=== PATIENT | male | born 1995 | race Caucasian/White ===

== ENCOUNTER 2025-04-30 08:21 | Emergency (ER) | payer BC, SELFPAY ==
[2025-04-30] VITALS (7 sets, daily range): BP systolic 120–147; BP diastolic 83–96; PULSE 81–90; RESP 16–22; TEMP 36.7; O2SAT 92–100; BMI 27.1
--- NOTE | 2025-04-30 08:37 | ECG_ITS ---
APPROVED REPORT Exam: Resting ECG HR:77 bpm ECG Measurements Heart Rate 77 AXES HI 183 P 9 QRSd 89 QRS 32 QT 363 T 25 QTc 395 Conclusion Normal sinus rhythm Normal axis Normal intervals No STEMI Electronically signed by : Stanislaw Gurrola, 04/30/2025 16:26:48
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
--- NOTE | 2025-04-30 08:51 | PC.NURSE ---
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
--- OUTSIDE RECORDS SUMMARY | 2025-04-30 09:05 | XMS_ITS | Data Portability ---
Author Organization [employer] Address [address] [place] [address] Assessment Encounter Date Assessment Date Assessment LastModified by Organization Details LastModified Time 04/27/2024 04/27/2024 XR to r/o fracture. Medications as prescribed. ROSANNA wrap. Apply ice 15 minutes every two hours while awake. Elevate as much as possible. Restricted duty recommended - may stand/walk for 15 minutes every two hours, otherwise seated duty. Follow up in 2 weeks for recheck, sooner if needed. Not available 04/27/2024 15:09:09 05/04/2024 05/04/2024 May resume full duty. Continue ibuprofen, ice and compression. If swelling and pain are not improving by the end of next week, call back and I will refer to orthopedics. Follow up in a month for fasting labs and annual exam, if ankle pain has improved but not resolved at that point, we may consider PT. (Needs lipid, CMP, CBC - consider Hep C and HIV screenings). Recheck BP at that time as well. Patient to monitor at home and keep log as well. Not available 05/04/2024 17:53:53 Plan of Treatment Reminders Order Date Submit Date Provider Last Modified By Organization Details Last Modified Time Details Appointments None recorded. Lab None recorded. Referral None recorded. Procedures None recorded. Surgeries None recorded. Imaging XR, ankle, 3 or more view [address], [place], [address], 16:48:33 Medication Orders ketorolac 60 mg/2 mL intramuscul ar solution 2023 024 [email or web address] Not available 18:01:22 ibuprofen 800 mg tablet 2023 [facility], [address] [place] [address], [address], 15:34:01 Patient TargetsNo targets recorded. Patient Instructions Encounter Date Encounter Id Patient Instructions Last Modified By Organization Details Last Modified Time 05/04/2024 [id number] learning about healthy weight Not available 05/04/2024 17:53:56 Reason for Referral None Reported. Results Created Date Observation Date Name Description Value Unit Range Abnormal Flag Note LastModifiedBy Organization Detail LastModifiedTime 04/27/20 XR, ankle , 3 or more view No observ ation record ed. [address], [address], 04/30/2024 10:57:45 Result Notes None recorded. Problems Name Problem SNOMED Code Status Onset Date Resolution Date Notes Provider Name and Address Organization Details Recorded Time Pain of left ankle joint 9204776743869 9103 Active 2023 Adele Maza NP [address] [place], [address], [employer] 14:53:55 Elevated blood-press ure reading without diagnosis of hypertensio n 611883040 Active 2023 Adele Maza NP [address] [place], [address], [employer] 17:53:33 Problem Notes None recorded. Medical Equipment None Reported. Allergies No known drug allergies Medications Name Sig Start Date Stop Date Status Note LastModified by Organization Details LastModified Time ibuprofen 800 mg tablet TAKE ONE TABLET BY MOUTH THREE TIMES DAILY NEEDED FOR PAIN. DO not start UNTIL 04/28/2024. active Not Available Not Available Not Available omeprazole 20 mg capsule,kita yed release TAKE 1 CAPSULE BY MOUTH DAILY. active Not Available Not Available No t Available ketorolac 60 mg/2 mL intramuscula r solution Inject 1 mL every 6 hours by intramuscul ar route. 2023 active Not Available Not Available Not Avai lable Vitals Date Recorded Body height Body mass index (BMI) Body weight Heart rate Oxygen saturation Oxygen saturation in Arterial blood by Pulse oximetry Systolic And Diastolic Provider Name and Address Organization Details Last Updated DateTime 4 182.88 cm 27.7 kg/m2 46642.8 4 g 76 /min 98 % 98 % 137/89 mm[Hg] Diane Larkin [employer] 14:13:46 Date Recorded Body height Body mass index (BMI) Body weight Heart rate Oxygen saturation Oxygen saturation in Arterial blood by Pulse oximetry Systolic And Diastolic Provider Name and Address Organization Details Last Updated DateTime 4 182.88 cm 27.9 kg/m2 33777.5 4 g 68 /min 97 % 97 % 140/93 mm[Hg] Diane Trae [facility] 16:58:49 Social History Question Answer Notes LastModified by Organizat ion Details LastModified Time Tobacco Smoking Status Never Smoker Diane Larkin [employer] 04/27/2024 14:14:33 How Many Years Have You Consumed Alcohol? 6 [email or web address] Information not available 04/27/2024 Do You Wear A Helmet When Biking? No [email or web address] Information not available 04/27/2024 Are You Blind Or Do You Have Difficulty Seeing? No Information n ot available 04/27/2024 In The 14 Days Before Symptom Onset, Have You Had Close Contact With A Laboratory-confirm ed COVID-19 While That Case Was Ill? No [email or web address] Information n ot available 04/27/2024 In The 14 Days Before Symptom Onset, Have You Had Close Contact With A Person Who Is Under Investigation For COVID-19 While That Person Was Ill? No [email or web address] Information not available 04/27/2024 Have You Been To An Area Known To Be High Risk For COVID-19? No [email or web address] Information not available 04/27/2024 Are You Deaf Or Do You Have Serious Difficulty Hearing? No [email or web address] Information not available 04/27/2024 What Type Of Diet Are You Following? REGULAR Information n ot available 04/27/2024 What Is The Highest Grade Or Level Of School You Have Completed Or The Highest Degree You Have Received? [id number] [email or web address] Information not available 04/27/2024 Who Is Your Employer? [employer] [email or web address] Information not available 04/27/2024 Have There Been Any Changes To Your Family Or Social Situation? No [email or web address] Information no t available 04/27/2024 What Was The Date Of Your Most Recent Tobacco Screening? 05/04/2024 [email or web address] Information not available 05/04/2024 Have You Ever Been Counseled For Unhealthy Alcohol Use? No [email or web address] Information not available 04/27/2024 What Is Your Relationship Status? [email or web address] Information not available 04/27/2024 Do You Use Your Seat Belt Or Car Seat Routinely? Yes [email or web address] Information not available 04/27/2024 Are You Sexually Active? Yes Information not available 04/27/2024 Do You Participate In Social Media? Yes [email or web address] Information not available 04/27/2024 Has Tobacco Cessation Counseling Been Provided? No [email or web address] Information not available 04/27/2024 Have You Recently Traveled Abroad? No [email or web address] Information not available 04/27/2024 Do You Have Difficulty Walking Or Climbing Stairs? No [email or web address] Information not available 04/27/2024 Are You Currently In School? No Information not available 04/27/2024 Do You Have Any Dietary Restrictions? No [email or web address] Information not available 04/27/2024 Sex: Male Functional Status Question Answer Note LastModified by Organizat ion Details LastModified Time How many times per week do you consume alcohol? 1-2 times per week Information not available 04/27/2024 Do you use any illicit or recreational drugs? No [email or web address] Information not available 04/27/2024 Do you or have you ever used any other forms of tobacco or nicotine? No [email or web address] Information not available 04/27/2024 What is your level of alcohol consumption? Occasional [email or web address] Information not available 04/27/2024 Are you currently employed? Yes [email or web address] Information not available 04/27/2024 Do you have access to reliable transportation? No [email or web address] Information not available 04/27/2024 Are you able to walk independently without assistance or assistive devices? YESWOREST [email or web address] Information not available 04/27/2024 Do you have difficulty doing errands alone? No Information not available 04/27/2024 Are you able to care for yourself independently? Yes [email or web address] Information not available 04/27/2024 Do you have difficulty dressing, bathing, grooming, or toileting? No [email or web address] Information not available 04/27/2024 Mental Status Question Answer Note LastModified by Organizat ion Details LastModified Time Do you feel stressed (tense, restless, nervous, or anxious, or unable to sleep at night)? [id number] [email or web address] Information not available 04/27/2024 Do you have difficulty concentrating, remembering or making decisions? No [email or web address] Information no t available 04/27/2024 Family History Relationship Description Onset Age of this Age Resolved Age Notes LastModified by Organization Details LastModified Time Father No current problems or disability [email or web address] Not available 04/27 14:13:56 Mother No current problems or disability [email or web address] Not available 04/27 14:13:56 Medical History Condition Response Emergency room visit since last appointm ent. N Hospitalizations N Immunizations Vaccine Type Date Status Note Provider Nam e and Address Organization Details Recorded Time Tdap 4 completed Adele Maza NP [address] [place] [address], [address], [employer] 05/04/2024 17:50:01 Hib, unspecified formulation 8 completed Diane harper [employer] 04/27/2024 14:04:56 Hib, unspecified formulation 8 ramonita harper [employer] 04/27/2024 14:04:56 Hib, unspecified formulation 7 completed Diane harper [employer] 04/27/2024 14:04:56 IPV 8 completed Diane Larkin null, [employer] 04/27/2024 14:04:56 IPV 3 completed Diane Larkin null, [employer] 04/27/2024 14:04:56 IPV 7 completed Diane Larkin null, [employer] 04/27/2024 14:04:56 MMR 9 completed Diane Larkin null, [employer] 04/27/2024 14:04:56 MMR 3 completed Diane Larkin null, [employer] 04/27/2024 14:04:56 Tdap 9 completed Diane Larkin null, [employer] 04/27/2024 14:04:56 varicella 8 completed Diane Larkin null, [employer] 04/27/2024 14:04:56 OPV, trivalent 8 completed Diane Larkin null, [employer] 04/27/2024 14:04:56 Hep B, adolescent or pediatric 8 completed Diane Larkin null, [employer] 04/27/2024 14:04:56 Hep B, adolescent or pediatric 7 completed Diane Larkin null, [employer] 04/27/2024 14:04:56 Hib (PRP-T) 9 completed Diane Larkin null, [employer] 04/27/2024 14:04:56 DTaP, unspecified formulation 9 completed Diane Larkin null, [employer] 04/27/2024 14:04:56 DTaP, unspecified formulation 8 completed Diane Larkin null, [employer] 04/27/2024 14:04:56 DTaP, unspecified formulation 8 completed Diane harper, [employer] 04/27/2024 14:04:56 DTaP, unspecified formulation 3 completed Diane harper, [employer] 04/27/2024 14:04:56 DTaP, unspecified formulation 7 completed Diane harper, [employer] 04/27/2024 14:04:56 meningococcal MCV4, unspecified formulation 9 completed Diane harper, [employer] 04/27/2024 14:04:56 Past Encounters Encounter ID Performer Location Encounter Start Date Encounter Closed Date Diagnosis/Indication Diagnosis SNOMED-CT Code Diagnosis ICD10 Code Diagnosis IMO Codes Diagnosis Note [id number] Adele Maza NP [facility] [address] [place], [place] [address] 04/27/2024 13:57:22 04/27/2024 16:10:13 Pain of left ankle joint 8339287681 3657605 M25.232 [id number] Adele Maza NP [facility] [address] [phone] 05/04/2024 16:39:33 05/04/2024 17:56:12 Active or passive immunization 803591044 Z23 Pain of le ft ankle joint 1564984685 6175490 M25.572 Elevated blood-pressure reading without diagnosis of hypertension 314115133 R03.0 Body mass index 25-29 - overweight 916896221 Z68.27 Health Concerns Section Related Observation LastModified by Organization Detai ls LastModified Time None Recorded Concern Status LastModified by Organization Details LastModified Time None Recorded Advance Directives Directive None Recorded Payers Insurance Date Sequence Insurance Name Policy Number Policy Roche Covered Member ID Roche Member ID Guarantor Name 05/05/2024 1 [place] [id number] 2 [facility] [place] [id number] [facility] Notes Date Note Type Note Provider Name and Address Organization Details Recorded Time 04/27/2024 text/html Patient presents to establish care and discuss ankle injury. States he fell through his cabin steps twice over the weekend, 2 days ago. States around 7 PM. Could not bear weight as soon as it happened. Lateral ankle pain and swelling since that time. He has applied ice, ROSANNA wrap and taken ibuprofen regularly. Has not taken it today. States it is still pretty painful when he walks on it and he has limping gait. Denies previous injury or trauma. No broken skin or wound. Has not had any NSAIDs today.Takes omeprazole for GERD and it works well. If he misses a day the symptoms recur. Lives with and little girl age 2. 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 Adele Maza NP [address] [place], [address], [employer] 04/27/2024 15:10:02 05/04/2024 text/html Patient presents for follow up on left ankle pain. HIs pain is a lot better, but the swelling continues. It is better in the mornings, but by the evening, the joint is very swollen on both lateral and medial sides. The top of his foot is also swollen. He has been on light duty at work and tolerating well. He does have significant bruising to his toes, but the previous bruising to lateral ankle has resolved. He would like to be released to full duty. He has been applying ice, ROSANNA wrap and taking ibuprofen regularly. Adele Maza NP [address] [place], [address], [employer], [employer] 05/04/2024 17:54:26
--- OUTSIDE RECORDS SUMMARY | 2025-04-30 09:05 | XMS_ITS | Clinical Summary ---
Author Organization Healthcare Address [address] [id number] Care Team Providers Care Insurance Claims Clerk Name Role Phone Demarco Fox MD Primary Care Provider [phone] Allergies No known active allergies Medications SUMAtriptan (Imitrex) 50 MG tablet Take 1 tablet by mouth daily as needed for migraine for up to 10 doses. May repeat dose once in 2 hours if no relief. Do not exceed 2 doses in 24 hours. 10 tablet 02/23/2025 Active Encounters Date Type Department Care Team Description 02/23/2025 1:17 PM EDT - 02/23/2025 5:34 PM EDT Emergency [facility] [address] [place] [address] Ashre Singleton MD Doty, Christopher I, MD Migraine without status migrainosus, not intractable, unspecified migraine type (Primary Dx) Discharge Disposition: Home or Self Care 02/23/2025 Travel from Last 3 Months Social History Tobacco Use Types Packs/Day Years Used Date Smoking Tobacco: Never Sex and Gender Information Value Date Recorded Sex Assigned at Not on file Legal Sex Male 8:12 PM EDT Gender Identity Not on file Sexual Orientation Not on file Last Filed Vital Signs Vital Sign Reading Time Taken Comments Blood Pressure 129/87 02/23/2025 5:33 PM EDT Pulse 66 02/23/2025 5:33 PM EDT Temperature 36.4 C (97.6 F) 02/23/2025 5:33 PM EDT Respiratory Rate 18 02/23/2025 5:33 PM EDT Oxygen Saturation 98% 02/23/2025 5:33 PM EDT Inhaled Oxygen Concentration - - Weight 90.7 kg (200 lb) 02/23/2025 12:59 PM EDT Height 182.9 cm (6') 02/23/2025 12:59 PM EDT Body Mass Index 27.12 02/23/2025 12:59 PM EDT Plan of Treatment Upcoming Encounters Date Type Department Care Team (Late st Contact Info) Description 09/22/2025 8:00 AM EST Consult [place] [facility] [address] [place] [address] Matthew Ramos, PA [address] [place] [address] Health Maintenance Due Date Last Done Comments [facility]-Depression Screening 1997 [facility]-Infant/Child/Adol SDOH Screenings 1997 [facility]-Hepatitis B Vaccines (3 of 3 - 3-dose series) 07/22/1998 05/27/1998, 1997 [facility]-Varicella Vaccines (2 of 2 - 2-dose childhood series) 2001 05/27/1998 [facility]-Obesity Intervention 2003 [facility]- SDOH Screenings 2015 [facility]-Adult SDOH Screenings 2015 HPV Vaccines (1 - 3-dose SCDM series) 2024 [facility]-[id number]-28 Vaccine ( - season) 2025 [facility]-Influenza Vaccine (#1) 2025 [facility]-DTaP,Tdap,and Td Vaccines (8 - Td or Tdap) 05/04/2034 05/04/2024, 01/21/2009, 02/23/2003, Additional history exists [facility]-Zoster Vaccines (1 of 2) 2047 05/27/1998 [facility]-HIB Vaccines Completed 09/01/1998, , 1997, Additional history exists [facility]-IPV Vaccines Completed 02/23/2003, , 1997, Additional history exists [facility]-HIV Screening Completed 02/23/2025 [facility]-Hepatitis C Screening Completed 02/23/2025 [facility]-Hepatitis A Vaccines Aged Out No longer eligible based on patient's age to complete this topic [facility]-Pneumococcal Vaccine: Pediatrics (0 to 5 Years) and At-Risk Patients (6 to 49 Years) Aged Out No longer eligible based on patient's age to complete this topic [facility]-Rotavirus Vaccines Aged Out No lo nger eligible based on patient's age to complete this topic Procedures Procedure Name Priority Date/Time Associated Diagnosis Comments CT HEAD WO IV CONTRAST STAT 2:20 PM EDT XR EEG TECHNICIAN SHUNT SURVEY STAT 02/23/2025 2: 06 PM EDT MAGNESIUM, PLASMA Add-On 02/23/2025 1:1 6 PM EDT ED HIV 1/2 ANTIBODY/ANTIGEN SCREEN WITH REFLEX TO HIV I/II DIFFERENTIATION STAT 02/23/2025 1:16 PM EDT ED PROTOCOL HIV 1/2 ANTIBODY/ANTIGEN SCREEN W/REFLEX TO HIV 1/2 ANTIBODY DIFFERENTIATION STAT 02/23/2025 1:16 PM EDT HEPATITIS C ANTIBODY - ED W/REFLEX TO HCV QUANT PCR STAT 02/23/2025 1:16 PM EDT C-REACTIVE PROTEIN, PLASMA STAT 02/23/2025 1:16 PM EDT CBC W/O DIFFERENTIAL STAT 02/23/2025 1:16 PM EDT COMPREHENSIVE METABOLIC PANEL, PLASMA STAT 02/23/2025 1:16 PM EDT from Last 3 Months Results * CT Head wo IV Contrast (02/23/2025 2:20 PM EDT) Anatomical Region Laterality Modality Head Computed Tomogra phy Impressions 02/23/2025 3:59 PM EDT Stable ventricular shunt with stable ventricles. There is discontinuity of the subcutaneous shunt tubing with absence of a shunt valve or reservoir, unchanged compared to April 2014. CRITICAL RESULT: No. COMMUNICATION: Per this written report. Drafted by Jonny Griggs MD on 02/23/2025 3:43 PM Final report signed by Jonny Griggs MD on 02/23/2025 3:59 PM Narrative 02/23/2025 3:59 PM EDT CLINICAL INDICATION: Pain around EEG TECHNICIAN shunt TECHNIQUE: Spiral axial CT images of the head were obtained without contrast administration. Total DLP (Dose-Length Product): 759.79 mGy.cm. Please note: The reported value represents the total of one or more individual components during the CT acquisition on this date and at this time, and as such, the same value may appear in more than one CT report depending on the interpreting/reporting physicians. COMPARISON: Outside head CT April 19, 2014 FINDINGS: Diagnostic Quality: Adequate. Stable right parietal approach ventricular shunt catheter terminating in the body the right lateral ventricle. The ventricles are stable in size without evidence of hydrocephalus. There is no acute large cortical infarct, intracranial hemorrhage or large mass on this noncontrast study. Soft Tissues: There appears to be discontinuity of the subcutaneous tubing within the right posterior scalp, which is unchanged compared to the prior exam. There is no shunt valve the reservoir identified, which is stable. No soft tissue fluid collection or swelling. Skull: There are no calvarial destructive lesions or fractures. Sinuses and Mastoids: The visualized portions of the paranasal sinuses are clear. The mastoid air cells are clear. Procedure Note Jonny Griggs MD - 02/23/2025 CLINICAL INDICATION: Pain around EEG TECHNICIAN shunt TECHNIQUE: Spiral axial CT images of the head were obtained without contrastadministration. Total DLP (Dose-Length Product): 759.79 mGy.cm. Please note: The reportedvalue represents the total of one or more individual components during theCT acquisition on this date and at this time, and as such, the same valuemay appear in more than one CT report depending on theinterpreting/reporting physicians. COMPARISON: Outside head CT April 19, 2014 FINDINGS: Diagnostic Quality: Adequate. Stable right parietal approach ventricular shunt catheter terminating inthe body the right lateral ventricle. The ventricles are stable in sizewithout evidence of hydrocephalus. There is no acute large cortical infarct, intracranial hemorrhage or largemass on this noncontrast study. Soft Tissues: There appears to be discontinuity of the subcutaneous tubingwithin the right posterior scalp, which is unchanged compared to the priorexam. There is no shunt valve the reservoir identified, which is stable.No soft tissue fluid collection or swelling. Skull: There are no calvarial destructive lesions or fractures. Sinuses and Mastoids: The visualized portions of the paranasal sinuses areclear. The mastoid air cells are clear. IMPRESSION: Stable ventricular shunt with stable ventricles. There is discontinuity ofthe subcutaneous shunt tubing with absence of a shunt valve or reservoir,unchanged compared to April 2014. CRITICAL RESULT: No. COMMUNICATION: Per this written report. Drafted by Jonny Griggs MD on 02/23/2025 3:43 PM Final report signed by Jonny Griggs MD on 02/23/2025 3:59 PM Audie Green MD IMG CT PROCEDURES Final Resul t * XR EEG TECHNICIAN Shunt Survey/Series (02/23/2025 2:06 PM EDT) Anatomical Region Laterality Modality Head, Chest, Abdomen Computed Ra diography Impressions 02/23/2025 3:08 PM EDT The visualized EEG TECHNICIAN shunt tubing demonstrates no abnormal kinking or disconnections. CRITICAL RESULT: No. COMMUNICATION: Per this written report. Drafted by Samia Gonzalez MD on 02/23/2025 3:06 PM Final report signed by Samia Gonzalez MD on 02/23/2025 3:08 PM Narrative 02/23/2025 3:08 PM EDT CLINICAL INDICATION: pain around shunt site TECHNIQUE: 2 view(s) of the head, 2 view(s) of the chest, and 2 view(s) of the abdomen/pelvis to evaluate EEG TECHNICIAN Shunt tubing. COMPARISON: None. FINDINGS: Right posterior approach EEG TECHNICIAN shunt. The visualized EEG TECHNICIAN shunt tubing demonstrates no abnormal kinking or disconnections. The lungs are clear. No pneumothorax. No pleural effusion. Cardiac and mediastinal contours are within normal limits. No acute bony abnormality. Bowel gas pattern is non-obstructive. Procedure Note Samia Gonzalez MD - 02/23/2025 CLINICAL INDICATION: pain around shunt site TECHNIQUE: 2 view(s) of the head, 2 view(s) of the chest, and 2 view(s) of theabdomen/pelvis to evaluate EEG TECHNICIAN Shunt tubing. COMPARISON: None. FINDINGS: Right posterior approach EEG TECHNICIAN shunt. The visualized EEG TECHNICIAN shunt tubingdemonstrates no abnormal kinking or disconnections. The lungs are clear. No pneumothorax. No pleural effusion. Cardiac andmediastinal contours are within normal limits. No acute bony abnormality.Bowel gas pattern is non-obstructive. IMPRESSION: The visualized EEG TECHNICIAN shunt tubing demonstrates no abnormal kinking ordisconnections. CRITICAL RESULT: No. COMMUNICATION: Per this written report. Drafted by Samia Gonzalez MD on 02/23/2025 3:06 PM Final report signed by Samia Gonzalez MD on 02/23/2025 3:08 PM Result [facility] Audie Green MD IMG XR PROCEDURES Final Resul t * ED HIV 1/2 Antibody/Antigen Screen w/Reflex to HIV 1/2 Differentiation (02/23/2025 1:16 PM EDT) [facility] HIV 1 & 2 Antibody/Antigen Screen Non Reactive Non Reactive 02/23/2025 2:25 PM EDT [facility] Comment:Screening for HIV 1 & 2 antibodies, and P24 antigen is NONREACTIVE. No confirmatory testing is required. Blood Venous blood specimen / Unknown Venipuncture / Unknown 02/23/2025 1:16 PM EDT 02/23/2025 1:33 PM EDT Result [facility] Audie Green MD LAB BLOOD ORDERABLES Final Re sult [facility] [address] [place] [address] * Hepatitis C Antibody - ED (02/23/2025 1:16 PM EDT) Pathologist [facility] Hepatitis C Antibody Negative Negative 02/23/2025 2:15 PM EDT [facility] Blood Venous blood specimen / Unknown Venipuncture / Unknown 02/23/2025 1:16 PM EDT 02/23/2025 1:33 PM EDT Audie Green MD LAB BLOOD ORDERABLES Final Re sult [facility] [address] [place] [address] * CBC (02/23/2025 1:16 PM EDT) WBC Count 6.79 3.70 - 10.30 10*3/uL LAB HEMATOLOGY METHOD 02/23/2025 1:24 PM EDT [facility] RBC Count 5.32 4.60 - 6.10 10*6/uL LAB HEMATOLOGY METHOD 02/23/2025 1:24 PM EDT [facility] HGB 15.7 13.7 - 17.5 g/dL LAB HEMATOLOGY METHOD 02/23/2025 1:24 PM EDT [facility] HCT 44.9 40.0 - 51.0 % LAB HEMATOLOGY METHOD 02/23/2025 1:24 PM EDT [facility] Platelet Count 310 155 - 369 10*3/uL LAB HEMATOLOGY METHOD 02/23/2025 1:24 PM EDT [facility] MCV 84 79 - 98 fL LAB HEMATOLOGY METHOD 02/23/2025 1:24 PM EDT [facility] MCH 29.5 26.0 - 32.0 pg LAB HEMATOLOGY METHOD 02/23/2025 1:24 PM EDT [facility] MCHC 35.0 30.7 - 35.5 g/dL LAB HEMATOLOGY METHOD 02/23/2025 1:24 PM EDT [facility] RDW 12.0 11.5 - 14.5 % LAB HEMATOLOGY METHOD 02/23/2025 1:24 PM EDT [facility] MPV 10.3 8.8 - 12.5 fL LAB HEMATOLOGY METHOD 02/23/2025 1:24 PM EDT [facility] nRBC 0.0 <=0.0 per 100 WBCs LAB HEMATOLOGY METHOD 02/23/2025 1:24 PM EDT [facility] Blood Venous blood specimen / Unknown Venipuncture / Unknown 02/23/2025 1:16 PM EDT 02/23/2025 1:21 PM EDT Audie Green MD LAB BLOOD ORDERABLES Final Re sult Performing Organization Address [facility]/ZIP Co de Phone Number [facility] [address] [place] [address] * C-Reactive protein (02/23/2025 1:16 PM EDT) CRP, Plasma <3.0 <=8.0 mg/L 02/23/2025 2:07 PM EDT [facility] Blood Venous blood specimen / Unknown Venipuncture / Unknown 02/23/2025 1:16 PM EDT 02/23/2025 1:21 PM EDT Narrative [facility] - 02/23/2025 2:07 PM EDT This CRP test is appropriate for assessment of infection, systemic inflammation and/or tissue injury. To assess cardiovascular disease risk order high sensitivity CRP (CRPH). us Audie Green MD LAB BLOOD ORDERABLES Final Re sult Performing Organization Address [facility] Co de Phone Number [facility] [address] [place] [address] * Magnesium (02/23/2025 1:16 PM EDT) Pathologist [facility] Magnesium, Plasma 2.0 1.9 - 2.4 mg/dL 02/23/2025 2:07 PM EDT [facility] Blood Venous blood specimen / Unknown Venipuncture / Unknown 02/23/2025 1:16 PM EDT 02/23/2025 1:21 PM EDT us Asher Singleton MD LAB BLOOD ORDERABLES Fi nal Result Performing Organization Address City/[facility]/ZIP Co de Phone Number [facility] [address] [place] [address] * (ABNORMAL) CMP (02/23/2025 1:16 PM EDT) Glucose, Plasma 89 74 - 99 mg/dL 02/23/2025 2:07 PM EDT [facility] BUN, Plasma 10 7 - 21 mg/dL 02/23/2025 2:07 PM EDT [facility] Creatinine, Plasma 0.84 0.70 - 1.20 mg/dL 02/23/2025 2:07 PM EDT [facility] BUN/Creatinine Ratio 12 02/23/2025 2:07 PM EDT [facility] Sodium, Plasma 141 136 - 145 mmol/L 02/23/2025 2:07 PM EDT [facility] Potassium, Plasma 4.1 3.6 - 4.9 mmol/L 02/23/2025 2:07 PM EDT [facility] Chloride, Plasma 105 97 - 107 mmol/L 02/23/2025 2:07 PM EDT [facility] CO2, Plasma 23 22 - 29 mmol/L 02/23/2025 2:07 PM EDT [facility] Anion Gap 13 6 - 16 mmol/L 02/23/2025 2:07 PM EDT [facility] Total Calcium, Plasma 10.1 8.9 - 10.2 mg/dL 02/23/2025 2:07 PM EDT [facility] Total Protein 7.9 6.3 - 7.9 g/dL 02/23/2025 2:07 PM EDT [facility] Albumin, Plasma 5.1 3.5 - 5.2 g/dL 02/23/2025 2:07 PM EDT [facility] AST, Plasma 31 10 - 50 U/L 02/23/2025 2:07 PM EDT [facility] ALT, Plasma 54(H) 10 - 50 U/L 02/23/2025 2:07 PM EDT [facility] Alkaline Phosphatase, Plasma 57 40 - 115 U/L 02/23/2025 2:07 PM EDT [facility] Total Bilirubin, Plasma 0.4 0.2 - 1.1 mg/dL 02/23/2025 2:07 PM EDT [facility] eGFRcr 122.6 mL/min/1.7 3m*2 02/23/2025 2:07 PM EDT [facility] Comment:Reported eGFRcr in m L/min/1.73m2 is based the CKD-EPI 2020 equation that does not use a race coefficient. Blood Venous blood specimen / Unknown Venipuncture / Unknown 02/23/2025 1:16 PM EDT 02/23/2025 1:21 PM EDT us Audie Green MD LAB BLOOD ORDERABLES Final Re sult [facility] [address] [place] [address] from Last 3 Months Insurance ANTHEM Care Teams Insurance Claims Clerk Relationship Specialty Start Date End Date Demarco Fox MD [address] [place] [id number] PCP - General 12/16/20
[2025-04-30] MEDS: IOPAMIDOL-370 (76%);100ML BOTTLE 160 ML IV (09:10)
[2025-04-30] MEDS: 0.9 % SODIUM CHLORIDE 50 ML VIAL 100 ML IV (09:10)
[2025-04-30] MEDS: SODIUM CHLORIDE 0.9% 10ML SYR (RAD ONLY) 10 ML IV (09:10)
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
[2025-04-30] MEDS: LACTATED RINGERS 1000ML 500 ML 999 ML IV (09:21)
[2025-04-30] MEDS: FENTANYL 100MCG/2ML VIAL 100 MCG IV (09:21)
--- NOTE | 2025-04-30 09:32 | PC.NURSE ---
Called lab to come get blood after unsuccessful attempts from RN and tech.
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
[2025-04-30 09:58] LABS: Hematocrit 47.9 % (42.0-52.0); Hemoglobin 15.9 g/dL (14.1-18.0); Immature Granulocytes % 0.6 %; Mean Corpuscular HGB Conc 33.2 g/dL (31.8-35.4); Mean Corpuscular Hemoglobin 29.6 pg (27.0-31.2); Mean Corpuscular Volume 89.0 fl (80-94); Nucleated Red Blood Cells % 0 %; Platelet Count 290 K/mm3 (142-424); Red Blood Count 5.38 M/mm3 (4.60-6.20); Red Cell Distribution Width-SD 40.0 fL; White Blood Count 19.2 K/mm3 (4.8-10.8)
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
[2025-04-30 10:08] LABS: Albumin Level 5.1 g/dl (3.5-5.0); Chloride 103 mmol/L (98-107); Potassium 4.6 mmoL/L (3.5-5.1); Sodium 139 mmol/L (136-145)
[2025-04-30 10:09] LABS: Activated Partial Thrombo Time 24.9 seconds (22.8-30.6); INR 0.98 (0.9-1.1); Prothrombin Time 10.9 seconds (10.1-12.5)
--- NOTE | 2025-04-30 10:09 | PC.NURSE ---
DR Gurrola currently on phone with
[2025-04-30 10:11] LABS: Alanine Aminotransferase 39 U/L (12-78); Albumin/Globulin Ratio 2.0 (1.1-1.8); Alkaline Phosphatase 60 U/L (38-126); Anion Gap 17.6 mEq/L (5-15); Aspartate Amino Transferase 46 U/L (17-59); Bilirubin,Total 0.4 mg/dl (0.2-1.3); Blood Urea Nitrogen 15 mg/dl (9-20); Calcium 9.4 mg/dl (8.4-10.2); Carbon Dioxide 23 mmol/L (22.0-30.0); Creatinine Clearance Estimated 158 mL/min (50-200); Creatinine,Serum 0.90 mg/dl (0.66-1.25); Estimated Glomerular Filt Rate 101 ml/min (>60); GFR (African American) 122 ML/MIN (>60); Globulin 2.6 g/dL (1.3-3.2); Glucose 136 mg/dl (74-100); Lipase 52 U/L (23-300); Total Protein,Serum 7.7 g/dl (6.3-8.2)
--- NOTE | 2025-04-30 10:11 | PC.NURSE ---
I called radiology to request a disc and they power share to [facility]
--- NOTE | 2025-04-30 10:11 | PC.NURSE ---
Called radiology they are power sharing images and getting us a disc.
--- NOTE | 2025-04-30 10:15 | PC.NURSE ---
called EMS for pt transfer. spoke with Jeffrey. Advised he would get a crew headed this way.
--- NOTE | 2025-04-30 10:21 | PC.NURSE ---
Report called to Kat BATEMAN at ED.
[2025-04-30 10:25] LABS: Troponin I < 0.01 ng/ml (0.00-0.034)
[2025-04-30] MEDS: ONDANSETRON 4MG/2ML VIAL 4 MG IV (10:33)
[2025-04-30] MEDS: KETOROLAC 30MG/ML VIAL 30 MG IV (10:34)
[2025-04-30] MEDS: HYDROMORPHONE 2MG/ML SYRINGE 1 MG IV (10:38)
[2025-04-30 11:21] LABS: Hepatitis C Ab Qual. W/ RFX NEGATIVE (Negative)
== END 2025-04-30 11:19 | disposition short-term general hospital (02) ==
PROVIDERS: Emergency Provider Student in an Organized Health Care Education/Training Program; PCP Family Medicine
DX: S32.012A Unstable burst fracture of first lumbar vertebra, initial encounter for closed fracture (principal); V49.40XA Driver injured in collision with unspecified motor vehicles in traffic accident, initial encounter
CPT/HCPCS: 36415; 70450; 70496; 70498; 71045; 71275; 72125; 72128; 72131; 72170; 74174; 80053; 83690; 84484; 85025; 85610; 85730; 86803; 87389; 93005; 96374; 96375; 99285; J1171; J1885; J2405; J3010; J7120; Q9967